=== PATIENT | female | born 1980 | race Caucasian/White ===

== ENCOUNTER → 2019-11-25 | Outpatient (CLI) | payer MEDICAID ==
--- NOTE | 2019-11-25 16:10 | XR ---
EXAMINATION TYPE: XR chest 2V DATE OF EXAM: 11/25/2019 COMPARISON: 04/03/2014 HISTORY: Chest pain TECHNIQUE: Frontal and lateral views of the chest are obtained. FINDINGS: There is no focal air space opacity. No evidence for pneumothorax. No pleural effusion. The cardiac silhouette size is within normal limits. The osseous structures are grossly intact. IMPRESSION: 1. No acute cardiopulmonary process.
== END | disposition home or self-care (01) ==
LOC: RADXRMAIN 14:50
PROVIDERS: ATTEND Family Medicine
DX: J98.59 Other diseases of mediastinum, not elsewhere classified (principal)
CPT/HCPCS: 71046

== ENCOUNTER 2020-01-27 08:41 | Emergency (ER) | payer MEDICAID ==
[2020-01-27 09:28] VITALS: RESP 20
--- NOTE | 2020-01-27 09:40 | ED ---
SOB HPI - General Chief Complaint: Shortness of Breath Stated Complaint: breathing problems Time Seen by Provider: 01/27/20 08:45 Source: patient Mode of arrival: ambulatory - History of Present Illness Initial Comments: The patient is a 39-year-old female with no past medical history presents emergency Department with reported shortness of breath, cough and sore throat. States that her symptoms have been present since . 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 States that she does have positive residence in her facility with coated as well as some of her family members staff. She admits to a nonproductive cough. No chest pain. Denies history of DVT or PE. No calf pain or swelling. Denies any fevers. Reports that she attempted to use an inhaler that she had at home for her symptoms and it doesn't seem to be helping. Patient admits to palpitations. Denies abdominal pain or changes in her bowel or bladder habits. No concern for . There are no other alleviating, precipitating or modifying factors - Related Data Home Medications Medication Instructions Recorded Confirmed Acetaminophen Tab [Tylenol Tab] 1,000 mg PO Q6HR PRN 01/27/20 01/27/20 Albuterol Sulfate [Ventolin HFA] 1 - 2 puff INHALATION RT-Q6H PRN 01/27/20 01/27/20 Allergies Allergy/AdvReac Type Severity Reaction Status Date / Time Latex, Natural Rubber AdvReac Mild Itching Verified 01/27/20 11:22 Review of Systems ROS Statement: Those systems with pertinent positive or pertinent negative responses have been documented in the HPI. ROS Other: All systems not noted in ROS Statement are negative. Past Medical History Past Medical History: Pneumonia Additional Past Medical History / Comment(s): anemia, seasonal allergies History of Any Multi-Drug Resistant Organisms: None Reported Past Surgical History: Section Past Anesthesia/Blood Transfusion Reactions: No Reported Reaction Past Psychological History: No Psychological Hx Reported Smoking Status: Never smoker Past Alcohol Use History: None Reported Past Drug Use History: None Reported - Past Family History Mother Family Medical History: No Reported History Father Family Medical History: No Reported History General Exam General appearance: alert, anxious Head exam: Present: atraumatic, normocephalic, normal inspection Eye exam: Present: normal appearance, PERRL, EOMI. Absent: scleral icterus, conjunctival injection, periorbital swelling ENT exam: Present: normal exam, mucous membranes moist Neck exam: Present: normal inspection. Absent: tenderness, meningismus, lymphadenopathy Respiratory exam: Present: normal lung sounds bilaterally, other (Tachypnea). A bsent: respiratory distress, wheezes, rales, rhonchi, stridor Cardiovascular Exam: Present: normal rhythm, tachycardia, normal heart sounds. Absent: systolic murmur, diastolic murmur, rubs, gallop, clicks GI/Abdominal exam: Present: soft, normal bowel sounds. Absent: distended, tenderness, guarding, rebound, rigid Extremities exam: Present: normal inspection, full ROM, normal capillary refill. Absent: tenderness, pedal edema, joint swelling, calf tenderness Back exam: Present: normal inspection Neurological exam: Present: alert, oriented X3, CN II-XII intact Psychiatric exam: Present: normal affect, anxious Skin exam: Present: warm, dry, intact, normal color. Absent: rash Course Vital Signs 01/27/20 01/27/20 01/27/20 08:44 09:27 12:50 Temperature 98.5 F 98.0 F Pulse Rate 153 H 102 H 119 H Respiratory 32 H 20 20 Rate Blood Pressure 124/86 124/76 120/72 O2 Sat by Pulse 100 100 100 Oximetry Medical Decision Making - Medical Decision Making Upon arrival the patient is placed into room 4. A thorough history and physical exam was performed. Laboratory studies were conducted. Portable chest x-ray is performed. The patient was swabbed for influenza and Covid. She is a healthcare worker with symptoms.Laboratory studies demonstrate a white blood cell count of 8.8. D-dimer is elevated at 1.07. Lactic acid is 3.1. HCG is not detected. Influenza A and B are not detected. Chest x-ray demonstrates no acute process. CT of the chest is performed which demonstrates no evidence of central or subsegmental pulmonary embolus. Subsegmental pulmonary arteries are limited by patient motion. No focal consolidation however geographic opacities are seen throughout the lung favored to be on the basis of atelectasis given low lung volumes. I discussed results with the patient. Vitals are obtained and the patient's has normalization of her heart rate at 102. Patient remains afeb rile. The patient is 100% on room air. I discussed diagnosis, differential treatment options. The patient does appear stable for discharge and is requesting to go home. I informed the patient that she continue to use her inhaler. Follow-up with her doctor within 2-4 days. Her Covid test is pending and therefore I did recommend that she remain in isolation until she has results. Return to the emergency room for any new or worsening symptoms. The patient was in agreement treatment plan she is discharged home in stable condition - Lab Data Result diagrams: 01/27/20 09:56 01/27/20 09:56 Lab Results 01/27/20 01/27/20 01/27/20 Range/Units 09:00 09:56 09:56 WBC 5.9 (3.8-10.6) k/uL RBC 4.27 (3.80-5.40) m/uL Hgb 8.8 L (11.4-16.0) gm/dL Hct 30.4 L (34.0-46.0) % MCV 71.2 L (80.0-100.0) fL MCH 20.5 L (25.0-35.0) pg MCHC 28.8 L (31.0-37.0) g/dL RDW 16.7 H (11.5-15.5) % Plt Count 252 (150-450) k/uL Neutrophils % 61 % Lymphocytes % 28 % Monocytes % 6 % Eosinophils % 2 % Basophils % 0 % Neutrophils # 3.6 (1.3-7.7) k/uL Lymphocytes # 1.6 (1.0-4.8) k/uL Monocytes # 0.4 (0-1.0) k/uL Eosinophils # 0.1 (0-0.7) k/uL Basophils # 0.0 (0-0.2) k/uL Manual Slide Review Performed Toxic Granulation Present Hypochromasia Marked Poikilocytosis Slight Anisocytosis Slight Microcytosis Moderate PT 10.1 (9.0-12.0) sec INR 1.0 (<1.2) APTT 21.2 L (22.0-30.0) sec D-Dimer 1.07 H (<0.60) mg/L FEU Sodium (137-145) mmol/L Potassium (3.5-5.1) mmol/L Chloride (98-107) mmol/L Carbon Dioxide (22-30) mmol/L Anion Gap mmol/L BUN (7-17) mg/dL Creatinine (0.52-1.04) mg/dL Est GFR (CKD-EPI)AfAm (>60 ml/min/1.73 sqM) Est GFR (CKD-EPI)NonAf (>60 ml/min/1.73 sqM) Glucose (74-99) mg/dL Lactic Ac Sepsis Rflx Plasma Lactic Acid Nikita (0.7-2.0) mmol/L Calcium (8.4-10.2) mg/dL Total Bilirubin (0.2-1.3) mg/dL AST (14-36) U/L ALT (4-34) U/L Alkaline Phosphatase (38-126) U/L Total Protein (6.3-8.2) g/dL Albumin (3.5-5.0) g/dL HCG, Qual Influenza Type A RNA Not Detected (Not Detectd) Influenza Type B (PCR) Not Detected (Not Detectd) 01/27/20 01/27/20 01/27/20 Range/Units 09:56 09:56 09:56 WBC (3.8-10.6) k/uL RBC (3.80-5.40) m/uL Hgb (11.4-16.0) gm/dL Hct (34.0-46.0) % MCV (80.0-100.0) fL MCH (25.0-35.0) pg MCHC (31.0-37.0) g/dL RDW (11.5-15.5) % Plt Count (150-450) k/uL Neutrophils % % Lymphocytes % % Monocytes % % Eosinophils % % Basophils % % Neutrophils # (1.3-7.7) k/uL Lymphocytes # (1.0-4.8) k/uL Monocytes # (0-1.0) k/uL Eosinophils # (0-0.7) k/uL Basophils # (0-0.2) k/uL Manual Slide Review Toxic Granulation Hypochromasia Poikilocytosis Anisocytosis Microcytosis PT (9.0-12.0) sec INR (<1.2) APTT (22.0-30.0) sec D-Dimer (<0.60) mg/L FEU Sodium 142 (137-145) mmol/L Potassium 4.1 (3.5-5.1) mmol/L Chloride 111 H (98-107) mmol/L Carbon Dioxide 18 L (22-30) mmol/L Anion Gap 13 mmol/L BUN 14 (7-17) mg/dL Creatinine 0.79 (0.52-1.04) mg/dL Est GFR (CKD-EPI)AfAm >90 (>60 ml/min/1.73 sqM) Est GFR (CKD-EPI)NonAf >90 (>60 ml/min/1.73 sqM) Glucose 94 (74-99) mg/dL Lactic Ac Sepsis Rflx Plasma Lactic Acid Nikita 3.1 H* (0.7-2.0) mmol/L Calcium 9.1 (8.4-10.2) mg/dL Total Bilirubin 0.3 (0.2-1.3) mg/dL AST 28 (14-36) U/L ALT 22 (4-34) U/L Alkaline Phosphatase 35 L (38-126) U/L Total Protein 6.5 (6.3-8.2) g/dL Albumin 4.0 (3.5-5.0) g/dL HCG, Qual Not Detected Influenza Type A RNA (Not Detectd) Influenza Type B (PCR) (Not Detectd) 01/27/20 Range/Units 10:19 WBC (3.8-10.6) k/uL RBC (3.80-5.40) m/uL Hgb (11.4-16.0) gm/dL Hct (34.0-46.0) % MCV (80.0-100.0) fL MCH (25.0-35.0) pg MCHC (31.0-37.0) g/dL RDW (11.5-15.5) % Plt Count (150-450) k/uL Neutrophils % % Lymphocytes % % Monocytes % % Eosinophils % % Basophils % % Neutrophils # (1.3-7.7) k/uL Lymphocytes # (1.0-4.8) k/uL Monocytes # (0-1.0) k/uL Eosinophils # (0-0.7) k/uL Basophils # (0-0.2) k/uL Manual Slide Review Toxic Granulation Hypochromasia Poikilocytosis Anisocytosis Microcytosis PT (9.0-12.0) sec INR (<1.2) APTT (22.0-30.0) sec D-Dimer (<0.60) mg/L FEU Sodium (137-145) mmol/L Potassium (3.5-5.1) mmol/L Chloride (98-107) mmol/L Carbon Dioxide (22-30) mmol/L Anion Gap mmol/L BUN (7-17) mg/dL Creatinine (0.52-1.04) mg/dL Est GFR (CKD-EPI)AfAm (>60 ml/min/1.73 sqM) Est GFR (CKD-EPI)NonAf (>60 ml/min/1.73 sqM) Glucose (74-99) mg/dL Lactic Ac Sepsis Rflx Y Plasma Lactic Acid Nikita (0.7-2.0) mmol/L Calcium (8.4-10.2) mg/dL Total Bilirubin (0.2-1.3) mg/dL AST (14-36) U/L ALT (4-34) U/L Alkaline Phosphatase (38-126) U/L Total Protein (6.3-8.2) g/dL Albumin (3.5-5.0) g/dL HCG, Qual Influenza Type A RNA (Not Detectd) Influenza Type B (PCR) (Not Detectd) - EKG Data EKG Comments: EKG demonstrates a sinus tachycardia with a ventricular rate of 111. WV interval 164. QRS 66. QTC of 456. No acute ST segment elevations or depressions concerning for ischemic changes. No signs of [id number] or Brugada syndrome Disposition Clinical Impression: Respiratory insufficiency, Cough, Tachycardia Disposition: HOME SELF-CARE Condition: Stable Instructions (If sedation given, give patient instructions): Upper Respiratory Infection (ED) Additional Instructions: Please quarantine yourself until results of your test come back. If you have any new or worsening symptoms please also return to the ED. Use your inhaler every 4 hours. Follow up with your doctor in 2-4 days Is patient prescribed a controlled substance at d/c from ED?: No Referrals: Marky Thakkar DO [Primary Care Provider] - 1-2 days Time of Disposition: 12:30
[2020-01-27 10:18] LABS: ALT 22 U/L (4-34); AST 28 U/L (14-36); African American GFR (CKD) >90 (>60 ml/min/1.73 sqM); Alkaline Phosphatase 35 U/L (38-126); Anion Gap 13 mmol/L; Blood Urea Nitrogen 14 mg/dL (7-17); Calcium 9.1 mg/dL (8.4-10.2); Carbon Dioxide 18 mmol/L (22-30); Chloride 111 mmol/L (98-107); Glucose 94 mg/dL (74-99); Non-African American GFR(CKD) >90 (>60 ml/min/1.73 sqM); Potassium 4.1 mmol/L (3.5-5.1); Sodium 142 mmol/L (137-145); Total Bilirubin 0.3 mg/dL (0.2-1.3); Total Protein 6.5 g/dL (6.3-8.2)
--- NOTE | 2020-01-27 10:29 | XR ---
EXAMINATION TYPE: XR chest 1V portable DATE OF EXAM: 01/27/2020 COMPARISON: 11/25/2019 HISTORY: Cough, congestion, shortness of breath TECHNIQUE: Single frontal view of the chest is obtained. FINDINGS: There is no focal air space opacity, pleural effusion, or pneumothorax seen. The cardiac silhouette size is within normal limits. The osseous structures are intact. IMPRESSION: No acute process.
[2020-01-27 10:30] LABS: Anisocytosis Slight; Basophils % (A) 0 %; Eosinophils # (A) 0.1 k/uL (0-0.7); Eosinophils % (A) 2 %; HCT 30.4 % (34.0-46.0); HGB 8.8 gm/dL (11.4-16.0); Hypochromasia Marked; Lymphocytes # (A) 1.6 k/uL (1.0-4.8); Lymphocytes % (A) 28 %; MCH 20.5 pg (25.0-35.0); MCHC 28.8 g/dL (31.0-37.0); MCV 71.2 fL (80.0-100.0); Mean Platelet Volume 8.9; Microcytosis Moderate; Monocytes # (A) 0.4 k/uL (0-1.0); Monocytes % (A) 6 %; Neutrophils # (A) 3.6 k/uL (1.3-7.7); Neutrophils % (A) 61 %; Platelet Count 252 k/uL (150-450); Poikilocytosis Slight; RBC 4.27 m/uL (3.80-5.40); RDW 16.7 % (11.5-15.5); WBC 5.9 k/uL (3.8-10.6)
[2020-01-27 10:44] LABS: Prothrombin Time 10.1 sec (9.0-12.0)
[2020-01-27 10:47] LABS: D-Dimer 1.07 mg/L FEU (<0.60); Partial Thromboplastin Time 21.2 sec (22.0-30.0)
[2020-01-27] MEDS ORDERED: SODIUM CHLORIDE 0.9% 1,000 ML IV ONE (10:53)
[2020-01-27 11:03] LABS: Toxic Granulation Present
--- NOTE | 2020-01-27 11:36 | CT ---
EXAMINATION TYPE: CT chest angio for PE DATE OF EXAM: 01/27/2020 COMPARISON: NONE HISTORY: elevated d-dimer, cough CT DLP: 650.2 mGycm. Automated Exposure Control for Dose Reduction was Utilized. CONTRAST: CTA scan of the thorax is performed with IV Contrast, patient injected with 100 mL of Isovue 370, pul monary embolism protocol. MIP Images are created on CT scanner and reviewed. FINDINGS: LUNGS: Geographic patchy faint groundglass opacities are seen bilaterally predominating dependently. There are low lung volumes and elevation of the right hemidiaphragm. The lungs are grossly clear, the re is no concerning parenchymal mass or nodule identified. There is no pleural effusion or pneumoth orax seen. The tracheobronchial tree is patent. MEDIASTINUM: There is satisfactory enhancement of the pulmonary artery and its branches, there is no evidence for central or segmental pulmonary embolism. However the subsegmental branches are limited a s there is patient motion artifact on the examination. There are no greater than 1 cm hilar or medias tinal lymph nodes. No cardiomegaly or pericardial effusion is seen. No thoracic aortic aneurysm. OTHER: Mild multilevel degenerative change of the spine. IMPRESSION: 1. No evidence of central or segmental pulmonary embolus. Subsegmental pulmonary arteries are limited by patient motion. 2. No focal consolidation however geographic opacities are seen throughout the lungs, favored to be o n the basis of atelectasis given low lung volumes however other etiologies such as fluid overload and much less likely infectious or inflammatory etiology are possible.
[2020-01-27 12:51] VITALS: BP 120/72; PULSE 119; TEMP 98
== END 2020-01-27 12:51 | disposition home or self-care (01) ==
LOC: EC 08:41
DX: R06.89 Other abnormalities of breathing (principal); R05 Cough; R00.0 Tachycardia, unspecified; Z91.040 Latex allergy status; Z91.048 Other nonmedicinal substance allergy status
CPT/HCPCS: 36415; 93005; 85379; 80053; 83605; 85025; 85610; 85730; 84703; 87502; 87635; 71045; 71275; 99285; 96360; 96361; Q9967

== ENCOUNTER → 2020-05-26 | Outpatient (CLI) | payer MEDICAID ==
--- NOTE | 2020-05-26 18:57 | CT ---
EXAMINATION TYPE: CT chest wo con DATE OF EXAM: 05/26/2020 COMPARISON: 01/27/2020 HISTORY: Cough and shortness of breath x4 months. CT DLP: 1026.2 mGycm, Automated exposure control for dose reduction was used. CONTRAST: None TECHNIQUE: Axial images were obtained at 1 mm thick sections at 10 mm intervals. This will limit po rtions of the examination which may not be visualized within the [id number]. Images were obtained in the prone and supine views. FINDINGS: Portion of the thyroid visualized is normal. No suspicious lung nodules or focal infiltrat es are present. No enlarged mediastinal or hilar adenopathy is evident. The ascending aorta diameter at the level o f the main pulmonary artery is 3.5 cm. The main pulmonary artery diameter at the bifurcation is 3.[address] sections are obtained through the upper abdomen. Abdomen is essentially unremarkable. IMPRESSIONS: 1. Normal High Resolution Chest CT.
== END | disposition home or self-care (01) ==
LOC: RADCTMAIN 14:11
PROVIDERS: ATTEND Internal Medicine Critical Care Medicine
DX: R05 Cough (principal)
CPT/HCPCS: 71250

== ENCOUNTER → 2020-08-07 | Outpatient (CLI) | payer MEDICAID ==
[2020-08-07 21:53] LABS: Cat Epith & Dander IgE <0.10 kU/L; Dermato. farinae IgE <0.10 kU/L
[2020-08-07 21:54] LABS: Birch IgE <0.10 kU/L; Dog Dander IgE <0.10 kU/L; Maple (Box Elder) IgE <0.10 kU/L; Oak IgE <0.10 kU/L
[2020-08-07 21:55] LABS: Elm IgE <0.10 kU/L; Ragweed,Common IgE <0.10 kU/L
[2020-08-07 21:56] LABS: Red Top (Bentgrass) IgE <0.10 kU/L
[2020-08-07 21:57] LABS: Aspergillus fumagatus IgE <0.10 kU/L; Cladosporian herbarum IgE <0.10 kU/L; Cockroach IgE 0.11 kU/L
[2020-08-07 21:58] LABS: Alternaria alternata IgE <0.10 kU/L
[2020-08-07 22:00] LABS: Egg White IgE <0.10 kU/L
[2020-08-07 23:07] LABS: Scallop IgE <0.10 kU/L; Walnut IgE (Food) <0.10 kU/L
[2020-08-07 23:08] LABS: Clam IgE <0.10 kU/L; Shrimp IgE <0.10 kU/L; Soybean IgE <0.10 kU/L
[2020-08-07 23:09] LABS: Peanut IgE <0.10 kU/L
[2020-08-07 23:10] LABS: Codfish IgE <0.10 kU/L
== END | disposition home or self-care (01) ==
LOC: LABWHC1 13:49
PROVIDERS: ATTEND Internal Medicine Critical Care Medicine
DX: J45.909 Unspecified asthma, uncomplicated (principal); T78.40XA Allergy, unspecified, initial encounter
CPT/HCPCS: 36415; 82785; 85008; 86003

== ENCOUNTER 2021-01-14 13:24 | Emergency (ER) | payer MEDICAID, OTHER ==
[2021-01-14 13:47] VITALS: RESP 18
--- NOTE | 2021-01-14 13:50 | ED ---
General Adult HPI - General Source: patient, RN notes reviewed Mode of arrival: ambulatory Limitations: no limitations <Brennen Dean - Last Filed: 01/14/21 13:45> <Ngoc Rabago - Last Filed: 01/15/21 06:05> - General Stated complaint: COVID+ Time Seen by Provider: 01/14/21 13:44 - History of Present Illness Initial comments: This a 40-year-old female presents emergency Department chief complaint of possible covid, chest pain, shortness breath. She states symptoms started over the weekend states that she tested 2 days ago. Patient's been having intermittent chest pain increasing shortness of breath. Patient contacted her emergency specialist who referred her to the emergency department. Patient states she is scheduled see cardiology as they believe that she has a Heart condition. Patient states that she took recent ibuprofen no recent Tylenol. Patient states that her pulse ox is been maintaining. (Brennen Dean) 40-year-old female with history of chronic anemia states she has not been taking her iron supplements with recent Covid positive test 2 days ago presenting to the emergency department today for chief complaint of cough and chest discomfort shortness of breath. Patient states that she has had cough as well as shortness of breath she states that at times she has a sharp pain and other times her chest feels tight. Patient denies jaw or arm pain. Patient denies ripping tearing back pain. Patient contacted her emergency specialist who told her to come to ER for further evaluation. Patient states that she has been being evaluated for tachycardia, especially with ambulating. Patient sates that she doesnt have any dark or bloody stools, denies abdominal pain. Patient denies desaturation at home. Remaining ROS (-). Upon history taking patient appears in no acute distress. (Ngoc Rabago) - Related Data Home Medications Medication Instructions Recorded Confirmed Fluticasone/Vilanterol [Breo 1 puff INHALATION RT-HS 01/14/21 01/14/21 Ellipta 200-25 Mcg INH] Montelukast Sodium [Singulair] 10 mg PO HS 01/14/21 01/14/21 Previous Rx's Medication Instructions Recorded Dexamethasone [Decadron] 6 mg PO DAILY 2 Days #2 tablet 01/14/21 Allergies Allergy/AdvReac Type Severity Reaction Status Date / Time Latex, Natural Rubber AdvReac Mild Itching Verified 01/14/21 18:25 Review of Systems ROS Other: All systems not noted in ROS Statement are negative. <Brennen Dean - Last Filed: 01/14/21 13:45> ROS Other: All systems not noted in ROS Statement are negative. <Ngoc Rabago - Last Filed: 01/15/21 06:05> ROS Statement: Those systems with pertinent positive or pertinent negative responses have been documented in the HPI. Past Medical History Past Medical History: Pneumonia Additional Past Medical History / Comment(s): respiratory symptoms not responding to treatment,steroids Jun 2020, hx anemia, seasonal allergies History of Any Multi-Drug Resistant Organisms: None Reported Past Surgical History: Section Additional Past Surgical History / Comment(s): c sect x 3 Past Anesthesia/Blood Transfusion Reactions: No Reported Reaction, Family Histor y of Problems w/ Anesthesia Additional Past Anesthesia/Blood Transfusion Reaction / Comment(s): mom has a hard time waking up from anesthesia Smoking Status: Never smoker - Past Family History Mother Family Medical History: No Reported History Father Family Medical History: No Reported History <Brennen Dean - Last Filed: 01/14/21 13:45> General Exam General appearance: alert, in no apparent distress Head exam: Present: atraumatic, normocephalic, normal inspection Eye exam: Present: normal appearance, PERRL, EOMI. Absent: scleral icterus, c onjunctival injection, periorbital swelling <SolBrennen headley - Last Filed: 01/14/21 13:45> <Ngoc Rabago - Last Filed: 01/15/21 06:05> - General Exam Comments Initial Comments: General: The patient is awake and alert, in no distress, and does not appear acutely ill. Eye: Pupils are equal, round and reactive to light, extra-ocular movements are intact. No nystagmus. There is normal conjunctiva bilaterally. No signs of icterus. Neck: The neck is supple, there is no tenderness or JVD. Cardiovascular: There is a regular rate and rhythm. No murmur, rub or gallop is appreciated. Respiratory: Lungs are clear to auscultation, respirations are non-labored, breath sounds are equal. No wheezes, stridor, rales, or rhonchi. Gastrointestinal: Soft, non-distended, non-tender abdomen without masses or organomegaly noted. There is no rebound or guarding present. Neurological: A&O x 3. CN II-XII intact, There are no obvious motor or sensory deficits. Coordination appears grossly intact. Speech is normal. Skin: Skin is warm and dry and no rashes or lesions are noted. No calf pain or LE edema. Psychiatric: Cooperative, appropriate mood & affect, normal judgment. (Ngoc Rabago) Course Vital Signs 01/14/21 01/14/21 01/14/21 13:45 15:47 18:34 Temperature 100.4 F H 99.0 F Pulse Rate 104 H 94 Respiratory 18 18 18 Rate Blood Pressure 115/71 92/53 O2 Sat by Pulse 100 99 Oximetry Medical Decision Making - Lab Data Result diagrams: 01/14/21 15:01 01/14/21 15:01 <Ngoc Rabago - Last Filed: 01/15/21 06:05> - Medical Decision Making 8.9 HgB, hx anemia with previous values ranging between 8-10. Patient has not been taking her iron lately. Denies presyncope, rectal bleeding/dark stools. P atient covid +. CXR clear. CTA clear. No PE. Patient EKG no specific findings. Valders patient symptoms related to covid 19 infection. Patient encouraged to repeat HgB in 24-48 hours and resume her iron supplements. Patient is to return for worsening dyspnea, hypoxia, chest discomfort. Patient is agreeable to this care plan and discharge at this time. Attending Edna (Ngoc Rabago) - Lab Data Lab Results 01/14/21 01/14/21 01/14/21 Range/Units 15:01 15:01 15:01 WBC 3.1 L (3.8-10.6) k/uL RBC 4.48 (3.80-5.40) m/uL Hgb 8.2 L (11.4-16.0) gm/dL Hct 29.2 L (34.0-46.0) % MCV 65.1 L (80.0-100.0) fL MCH 18.2 L (25.0-35.0) pg MCHC 28.0 L (31.0-37.0) g/dL RDW 17.9 H (11.5-15.5) % Plt Count 283 (150-450) k/uL MPV 9.5 Neutrophils % 63 % Lymphocytes % 28 % Monocytes % 7 % Eosinophils % 1 % Basophils % 0 % Neutrophils # 1.9 (1.3-7.7) k/uL Lymphocytes # 0.9 L (1.0-4.8) k/uL Monocytes # 0.2 (0-1.0) k/uL Eosinophils # 0.0 (0-0.7) k/uL Basophils # 0.0 (0-0.2) k/uL Hypochromasia Marked Poikilocytosis Slight Anisocytosis Slight Microcytosis Marked PT 10.4 (9.0-12.0) sec INR 1.0 (<1.2) APTT 23.2 (22.0-30.0) sec D-Dimer 0.96 H (<0.60) mg/L FEU Sodium 139 (137-145) mmol/L Potassium 3.7 (3.5-5.1) mmol/L Chloride 106 (98-107) mmol/L Carbon Dioxide 22 (22-30) mmol/L Anion Gap 11 mmol/L BUN 16 (7-17) mg/dL Creatinine 0.73 (0.52-1.04) mg/dL Est GFR (CKD-EPI)AfAm >90 (>60 ml/min/1.73 sqM) Est GFR (CKD-EPI)NonAf >90 (>60 ml/min/1.73 sqM) Glucose 91 (74-99) mg/dL Calcium 8.5 (8.4-10.2) mg/dL Magnesium 2.1 (1.6-2.3) mg/dL Total Bilirubin 0.4 (0.2-1.3) mg/dL AST 24 (14-36) U/L ALT 15 (4-34) U/L Alkaline Phosphatase 37 L (38-126) U/L Troponin I (0.000-0.034) ng/mL C-Reactive Protein <5.0 (<10.0) mg/L Total Protein 6.5 (6.3-8.2) g/dL Albumin 4.1 (3.5-5.0) g/dL 01/14/21 Range/Units 15:01 WBC (3.8-10.6) k/uL RBC (3.80-5.40) m/uL Hgb (11.4-16.0) gm/dL Hct (34.0-46.0) % MCV (80.0-100.0) fL MCH (25.0-35.0) pg MCHC (31.0-37.0) g/dL RDW (11.5-15.5) % Plt Count (150-450) k/uL MPV Neutrophils % % Lymphocytes % % Monocytes % % Eosinophils % % Basophils % % Neutrophils # (1.3-7.7) k/uL Lymphocytes # (1.0-4.8) k/uL Monocytes # (0-1.0) k/uL Eosinophils # (0-0.7) k/uL Basophils # (0-0.2) k/uL Hypochromasia Poikilocytosis Anisocytosis Microcytosis PT (9.0-12.0) sec INR (<1.2) APTT (22.0-30.0) sec D-Dimer (<0.60) mg/L FEU Sodium (137-145) mmol/L Potassium (3.5-5.1) mmol/L Chloride (98-107) mmol/L Carbon Dioxide (22-30) mmol/L Anion Gap mmol/L BUN (7-17) mg/dL Creatinine (0.52-1.04) mg/dL Est GFR (CKD-EPI)AfAm (>60 ml/min/1.73 sqM) Est GFR (CKD-EPI)NonAf (>60 ml/min/1.73 sqM) Glucose (74-99) mg/dL Calcium (8.4-10.2) mg/dL Magnesium (1.6-2.3) mg/dL Total Bilirubin (0.2-1.3) mg/dL AST (14-36) U/L ALT (4-34) U/L Alkaline Phosphatase (38-126) U/L Troponin I <0.012 (0.000-0.034) ng/mL C-Reactive Protein (<10.0) mg/L Total Protein (6.3-8.2) g/dL Albumin (3.5-5.0) g/dL Disposition <Dedoe,Brennen M - Last Filed: 01/14/21 13:45> Is patient prescribed a controlled substance at d/c from ED?: No Time of Disposition: 18:24 <Ngoc Rabago - Last Filed: 01/15/21 06:05> Clinical Impression: COVID-19, Dyspnea, Chest discomfort, Fever Disposition: HOME SELF-CARE Condition: Good Instructions (If sedation given, give patient instructions): Coronavirus Disea se 2018 (COVID-19) Additional Instructions: Please use medication as discussed. Please follow-up with family doctor in the next 2 days. Monitor oxygen at home how discussed. Please return to emergency room if the symptoms increase or worsen or for any other concerns. Prescriptions: Dexamethasone [Decadron] 6 mg PO DAILY 2 Days #2 tablet Referrals: Marky Thakkar DO [Primary Care Provider] - 1-2 days
[2021-01-14 15:12] LABS: Anisocytosis Slight; Basophils % (A) 0 %; Eosinophils % (A) 1 %; HCT 29.2 % (34.0-46.0); HGB 8.2 gm/dL (11.4-16.0); Hypochromasia Marked; Lymphocytes # (A) 0.9 k/uL (1.0-4.8); Lymphocytes % (A) 28 %; MCH 18.2 pg (25.0-35.0); MCV 65.1 fL (80.0-100.0); Mean Platelet Volume 9.5; Microcytosis Marked; Monocytes # (A) 0.2 k/uL (0-1.0); Monocytes % (A) 7 %; Neutrophils # (A) 1.9 k/uL (1.3-7.7); Neutrophils % (A) 63 %; Platelet Count 283 k/uL (150-450); Poikilocytosis Slight; RBC 4.48 m/uL (3.80-5.40); RDW 17.9 % (11.5-15.5); WBC 3.1 k/uL (3.8-10.6)
[2021-01-14 15:21] LABS: ALT 15 U/L (4-34); AST 24 U/L (14-36); African American GFR (CKD) >90 (>60 ml/min/1.73 sqM); Albumin 4.1 g/dL (3.5-5.0); Alkaline Phosphatase 37 U/L (38-126); Anion Gap 11 mmol/L; Blood Urea Nitrogen 16 mg/dL (7-17); C Reactive Protein <5.0 mg/L (<10.0); Calcium 8.5 mg/dL (8.4-10.2); Carbon Dioxide 22 mmol/L (22-30); Chloride 106 mmol/L (98-107); Glucose 91 mg/dL (74-99); Magnesium 2.1 mg/dL (1.6-2.3); Non-African American GFR(CKD) >90 (>60 ml/min/1.73 sqM); Potassium 3.7 mmol/L (3.5-5.1); Sodium 139 mmol/L (137-145); Total Bilirubin 0.4 mg/dL (0.2-1.3); Total Protein 6.5 g/dL (6.3-8.2)
--- NOTE | 2021-01-14 15:26 | XR ---
EXAMINATION TYPE: XR chest 2V DATE OF EXAM: 01/14/2021 COMPARISON: 01/27/2020 INDICATION: Covid Difficulty breathing TECHNIQUE: Frontal and lateral views of the chest are obtained. FINDINGS: The heart size is normal. The pulmonary vasculature is normal. The lungs are clear. IMPRESSION: 1. No acute pulmonary process.
[2021-01-14 15:29] LABS: Partial Thromboplastin Time 23.2 sec (22.0-30.0); Prothrombin Time 10.4 sec (9.0-12.0)
[2021-01-14 15:34] LABS: D-Dimer 0.96 mg/L FEU (<0.60)
[2021-01-14] MEDS ORDERED: ACETAMINOPHEN TAB 325 MG TAB PO STA (16:47)
[2021-01-14] MEDS ORDERED: SODIUM CHLORIDE 0.9% 500 ML 500 ML IV ONE (16:47)
--- NOTE | 2021-01-14 17:59 | CT ---
EXAMINATION TYPE: CT chest angio for PE DATE OF EXAM: 01/14/2021 COMPARISON: Same-day radiograph. CT 05/26/2020. There is a 1.9 cm HISTORY: Difficulty breathing, cough, elevated d-dimer and positive covid test. CT DLP: 460.8 mGycm Automated exposure control for dose reduction was used. CONTRAST: CT Chest for pulmonary embolism performed with with IV Contrast, patient injected with 100 mL of Isov ue 370. FINDINGS: LUNGS: The lungs are grossly clear, there is no concerning parenchymal mass or nodule identified. T here is no pleural effusion or pneumothorax seen. The tracheobronchial tree is patent. MEDIASTINUM: There is satisfactory enhancement of the pulmonary artery and its branches, there is no CT evidence for pulmonary embolism. There are no greater than 1 cm hilar or mediastinal lymph nodes. No pericardial effusion is seen. OTHER: No additional significant abnormality is seen. IMPRESSION: No acute PE or other cardiopulmonary abnormality.
[2021-01-14 18:35] VITALS: BP 92/53; PULSE 94; TEMP 99
== END 2021-01-14 18:55 | disposition home or self-care (01) ==
LOC: EC 13:24
DX: U07.1 COVID-19 (principal); Z79.899 Other long term (current) drug therapy; Z79.51 Long term (current) use of inhaled steroids; Z91.040 Latex allergy status
CPT/HCPCS: 36415; 93005; 85379; 80053; 83735; 84484; 85025; 85610; 85730; 86140; 71046; 71275; 99285; 96360; Q9967

== ENCOUNTER → 2021-03-25 | Outpatient (CLI) | payer OTHER ==
--- NOTE | 2021-03-26 07:43 | US ---
EXAMINATION TYPE: US thyroid st tissue head/neck DATE OF EXAM: 03/25/2021 COMPARISON: NONE CLINICAL HISTORY: R59.0 CERVICAL LYMPHADENOPATHY. Pt states palpable lumps bilateral lateral neck x y ears, pt states change in size and occasionally painful Bilateral lateral neck scanned in areas of pt's palpables. Normal appearing lymph nodes are visuali zed, AP measurements= 0.9 cm RIGHT and 0.6 cm LEFT IMPRESSION: Right-sided neck lymph node has increased cortical thickening favoring reactive etiology. Advise short-term ultrasound follow-up to reassess in 2-3 months time.
== END | disposition home or self-care (01) ==
LOC: RADUSWWP 15:33
PROVIDERS: ATTEND Internal Medicine Hematology & Oncology
DX: R59.0 Localized enlarged lymph nodes (principal)
CPT/HCPCS: 76536

== ENCOUNTER → 2022-01-13 | Outpatient (CLI) | payer OTHER ==
--- NOTE | 2022-01-14 13:49 | MM ---
Reason for exam: screening (asymptomatic). Baseline mammogram. Physical Findings: A clinical breast exam by your physician is recommended on an annual basis and results should be correlated with mammographic findings. MG 3D Screening Mammo W/Cad Bilateral CC and MLO view(s) were taken. There are scattered fibroglandular densities. There is no discrete abnormality. ASSESSMENT: Negative, BI-RAD 1 RECOMMENDATION: Routine screening mammogram of both breasts in 1 year.
== END | disposition home or self-care (01) ==
LOC: RADMAMWWP 14:28
PROVIDERS: ATTEND Obstetrics & Gynecology
DX: Z12.31 Encounter for screening mammogram for malignant neoplasm of breast (principal); Z80.3 Family history of malignant neoplasm of breast
CPT/HCPCS: 77063; 77067

== ENCOUNTER → 2022-01-21 | Outpatient (CLI) | payer OTHER ==
[2022-01-21 14:51] LABS: Basophils # (A) 0.02 X 10*3/uL (0.00-0.10); Basophils % (A) 0.5 %; Eosinophils # (A) 0.14 X 10*3/uL (0.04-0.35); Eosinophils % (A) 3.6 %; HCT 37.2 % (37.2-46.3); HGB 11.7 g/dL (12.0-15.0); Immature Grans, Automated 0.5 %; Lymphocytes # (A) 1.14 X 10*3/uL (0.90-5.00); MCH 29.8 pg (27.0-32.0); MCHC 31.5 g/dL (32.0-37.0); MCV 94.7 fL (80.0-97.0); Mean Platelet Volume 11.7 fL (9.5-12.2); Monocytes # (A) 0.45 X 10*3/uL (0.20-1.00); Monocytes % (A) 11.5 %; NRBC Per 100 WBC 0 /100 WBCS (0.0-0.0); Neutrophils # (A) 2.16 X 10*3/uL (1.80-7.70); Neutrophils % (A) 54.9 %; Platelet Count 174 X 10*3/uL (140-440); RBC 3.93 X 10*6/uL (4.10-5.20); RDW 14.4 % (11.5-14.5); WBC 3.93 X 10*3/uL (4.50-10.00)
== END | disposition home or self-care (01) ==
LOC: LABWHC1 08:50
PROVIDERS: ATTEND Obstetrics & Gynecology
DX: Z01.812 Encounter for preprocedural laboratory examination (principal); N92.0 Excessive and frequent menstruation with regular cycle; N84.0 Polyp of corpus uteri
CPT/HCPCS: 85025